=== PATIENT | male | born 1995 | race Caucasian/White ===

== ENCOUNTER 2019-05-27 23:11 | Emergency (ER) | payer SELFPAY ==
[~2019-05-27] VITALS: Ht 175.3 cm; Wt 99.8 kg
[2019-05-28] VITALS: BP_SYST 116
[2019-05-28 01:34] VITALS: BP_SYST 116
== END 2019-05-28 01:34 | disposition home or self-care (01) ==
LOC: SED 23:11
DX: R09.89 Other specified symptoms and signs involving the circulatory and respiratory systems (principal)
CPT/HCPCS: 99283

== ENCOUNTER 2019-09-09 17:09 | Emergency (ER) | payer MEDICAID ==
[~2019-09-09] VITALS: Ht 175.3 cm; Wt 99.8 kg
[2019-09-09 17:54] VITALS: BP_SYST 143
--- NOTE | 2019-09-09 17:58 | NUR ---
Patient triaged and placed in waiting room. VSS and patient appears in no acute distress at this time. Accompanied by friend, awaiting available bed, and MD notified of need for MSE.
--- NOTE | 2019-09-09 21:43 | NUR ---
Patient to ER bed 08 to gown for evaluation. Side rails up. Report given to SHREYA Espinoza
--- NOTE | 2019-09-09 21:50 | NUR ---
Pt came to the ED for R hand pain after hitting a wall 6 days ago due to frustration. Upon observation hand appears to be slightly swollen. Cap refill is brisk. No signs of acute distress. Will cont. to monitor.
--- NOTE | 2019-09-09 21:53 | NUR ---
ER at bedside examining patient.
[2019-09-09 22:10] VITALS: BP_SYST 143
--- NOTE | 2019-09-09 22:10 | NUR ---
Patient given written and verbal discharge instructions and verbalizes understanding. ER MD Dr. Myers discussed with patient the results and treatment provided. Patient in stable condition. ID arm band removed. Patient educated on pain management and to follow up with PMD. Pain Scale 0/10. Opportunity for questions provided and answered. Medication side effect fact sheet provided.
== END 2019-09-09 22:10 | disposition home or self-care (01) ==
LOC: SED 17:09
DX: S63.91XA Sprain of unspecified part of right wrist and hand, initial encounter (principal); W22.01XA Walked into wall, initial encounter; Y93.89 Activity, other specified; Y92.89 Other specified places as the place of occurrence of the external cause; Y99.8 Other external cause status
CPT/HCPCS: 99283